=== PATIENT | male | born 1965 | race Caucasian/White ===

== ENCOUNTER 2021-09-24 01:45 | Inpatient (IN) | payer MEDICAID ==
[~2021-09-24] VITALS: Ht 167.6 cm; Wt 60.3 kg
[2021-09-24 04:42] LABS: HEMATOCRIT. 45.6 % (42.0-52.0); HEMOGLOBIN. 14.9 g/dL (14.0-18.0); MEAN CORPUSCULAR HEMOGLOBIN 29.2 pg (28.0-32.0); MEAN CORPUSCULAR VOLUME 89.3 fL (80.0-94.0); MEAN PLATELET VOLUME 7.6 fl (7.4-10.4); PLATELET 262 x1000/uL (130-400); RED BLOOD CELL COUNT 5.11 mill/uL (4.7-6.1); RED CELL DISTRIBUTION WIDTH 14.2 % (11.6-14.6)
[2021-09-24 04:48] LABS: CHLORIDE 99 mEq/L (98-107)
[2021-09-24 05:24] LABS: CLARITY URINE CLOUDY (CLEAR); COLOR URINE YELLOW (YELLOW); KETONES URINE TRACE (NEGATIVE); LEUKOCYTE ESTERASE URINE 1+ (NEGATIVE); NITRITE URINE NEGATIVE (NEGATIVE); OCCULT BLOOD URINE 3+ (NEGATIVE); PROTEIN URINE 2+ (NEGATIVE); SPECIFIC GRAVITY URINE 1.018 (1.005-1.030); UROBILINOGEN URINE 0.2 E.U./dL (0.2-1.0)
[2021-09-24] MEDS ORDERED: SODIUM CHLORIDE 0.9% 1000ML BAG (SEPSIS BOLUS) IV ONE (05:30)
[2021-09-24] MEDS ORDERED: VANCOMYCIN 1 G PREMIX 200 ML IV ONE (05:30)
[2021-09-24] MEDS ORDERED: PIPERACILLIN/TAZ 3.375G PREMIX 50 ML IV ONE (05:30)
[2021-09-24 05:47] LABS: PLATELET ESTIMATE NORMAL
[2021-09-24] MEDS ORDERED: DIPHENHYDRAMINE 50MG/ML VIAL IV PRN (07:30)
[2021-09-24] MEDS ORDERED: MORPHINE SULFATE 2 MG/ML CPJ (NOT FOR IM USE) IV PRN (07:30)
[2021-09-24] MEDS ORDERED: ONDANSETRON HCL 4MG/2ML INJ IV PRN (07:30)
[2021-09-24] MEDS ORDERED: CLONIDINE 0.1MG TABLET PO PRN (07:30)
[2021-09-24] MEDS ORDERED: MAGNESIUM/ALUMINUM HYDROXIDE/SIMETHICONE 30ML UDC PO PRN (07:30)
[2021-09-24] MEDS ORDERED: LORAZEPAM 2MG/ML CPJ IV PRN (07:30)
[2021-09-24] MEDS ORDERED: ALBUTEROL 6.7GM HFA INHALER ORI PRN (07:30)
[2021-09-24] MEDS ORDERED: DOCUSATE SODIUM 100MG CAPSULE PO PRN (07:30)
[2021-09-24] MEDS ORDERED: HYDROCODONE/ACETAMINOPHEN 5/325MG TABLET PO PRN (07:30)
[2021-09-24] MEDS ORDERED: DEXTROSE 50% WATER 50ML SYRINGE IV PRN ×3 (07:30→09:30)
[2021-09-24] MEDS ORDERED: INSULIN LISPRO 100 UNITS/ML SUBCUT SCH (08:20)
[2021-09-24] MEDS ORDERED: NALOXONE HCL 0.4MG/ML VIAL IV PRN (08:45)
[2021-09-24] MEDS: ENOXAPARIN 40MG/0.4ML SYR SUBCUT SCH (09:00)
[2021-09-24] MEDS ORDERED: BLOOD SUGAR DIAGNOSTIC STRIP TEST SCH (09:00)
[2021-09-24] MEDS: SODIUM CHLORIDE 0.45% 1,000 ML IV SCH ×2 (09:10→12:20)
[2021-09-24 10:00] LABS: T4 FREE 1.24 ng/dL (0.76-1.46)
[2021-09-24] MEDS: INSULIN GLARGINE UD 100 UNITS/ML SYR SUBCUT SCH (10:00)
[2021-09-24] MEDS ORDERED: INSULIN REGULAR (DRIP) 100 UNITS in SODIUM CHLORIDE 0.9% 99 ML IV SCH (10:00)
[2021-09-24] MEDS: BLOOD SUGAR DIAGNOSTIC STRIP TEST SCH ×14 (10:36→23:00)
[2021-09-24] MEDS ORDERED: PIPERACILLIN/TAZ 3.375G PREMIX 50 ML IV SCH (14:00)
[2021-09-24] MEDS: SODIUM CHLORIDE 0.9% INJ 3ML FLUSH IVF SCH ×2 (14:00→22:00)
[2021-09-24 17:15] LABS: CREATINE KINASE MB FRACTION 1.4 ng/mL (0.5-3.6)
[2021-09-24 22:00] VITALS: BP 115/77
[2021-09-25 07:03] LABS: HEMATOCRIT. 40.5 % (42.0-52.0); HEMOGLOBIN. 13.7 g/dL (14.0-18.0); MEAN CORPUSCULAR VOLUME 88.8 fL (80.0-94.0); MEAN PLATELET VOLUME 8.9 fl (7.4-10.4); PLATELET 128 x1000/uL (130-400); RED BLOOD CELL COUNT 4.56 mill/uL (4.7-6.1); RED CELL DISTRIBUTION WIDTH 14.3 % (11.6-14.6)
[2021-09-25 07:09] LABS: CHLORIDE 108 mEq/L (98-107)
[2021-09-25 08:00] VITALS: BP 97/63
[2021-09-25] MEDS: SODIUM CHLORIDE 0.45% 1,000 ML IV SCH ×3 (09:16→17:10)
[2021-09-25] MEDS: ENOXAPARIN 40MG/0.4ML SYR SUBCUT SCH (09:29)
[2021-09-25 12:00] VITALS: BP 109/63
[2021-09-25] MEDS: PIPERACILLIN/TAZOBACTAM 3.375 G in DEXTROSE 5% WATER 50 ML IV SCH ×4 (13:43→22:15)
[2021-09-25] MEDS: INSULIN GLARGINE UD 100 UNITS/ML SYR SUBCUT SCH (13:43)
[2021-09-25] MEDS: SODIUM CHLORIDE 0.9% INJ 3ML FLUSH IVF SCH ×2 (14:00→22:00)
[2021-09-25 16:00] VITALS: BP 112/60
[2021-09-25] MEDS ORDERED: VANCOMYCIN 1 G PREMIX 200 ML IV NR (17:00)
[2021-09-25 20:00] VITALS: BP 121/75
[2021-09-25] MEDS ORDERED: CEFTRIAXONE 1 G PREMIX 50 ML IV SCH (20:15)
[2021-09-25 20:27] LABS: CREATINE KINASE MB FRACTION 1.2 ng/mL (0.5-3.6)
[2021-09-25] MEDS ORDERED: CEFTRIAXONE 1,000 MG in DEXTROSE 5% WATER 50 ML IV NR (22:30)
[2021-09-25] MEDS ORDERED: DEXTROSE 50% WATER 50ML SYRINGE IV PRN (23:45)
[2021-09-26] VITALS: BP 130/78
[2021-09-26] MEDS: SODIUM CHLORIDE 0.45% 1,000 ML IV SCH ×2 (00:30→05:43)
[2021-09-26 04:00] VITALS: BP 127/78
[2021-09-26] MEDS: SODIUM CHLORIDE 0.9% INJ 3ML FLUSH IVF SCH ×2 (05:42→14:12)
[2021-09-26] MEDS: INSULIN LISPRO 100 UNITS/ML SUBCUT SCH ×2 (05:43→14:06)
[2021-09-26] MEDS: BLOOD SUGAR DIAGNOSTIC STRIP TEST SCH ×4 (05:43→21:00)
[2021-09-26 06:52] LABS: PLATELET ESTIMATE SLIGHTLY DECREASED
[2021-09-26 08:40] LABS: PHOSPHORUS 2.7 mg/dL (2.5-4.9)
[2021-09-26 09:08] LABS: HEMATOCRIT. 41.8 % (42.0-52.0); HEMOGLOBIN. 13.9 g/dL (14.0-18.0); MEAN CORPUSCULAR HEMOGLOBIN 29.6 pg (28.0-32.0); MEAN PLATELET VOLUME 9.3 fl (7.4-10.4); PLATELET 99 x1000/uL (130-400); RED BLOOD CELL COUNT 4.69 mill/uL (4.7-6.1); RED CELL DISTRIBUTION WIDTH 14.4 % (11.6-14.6)
[2021-09-26] MEDS ORDERED: PERMETHRIN 5% CREAM 60GM TOP NR (11:00)
[2021-09-26] MEDS: PIPERACILLIN/TAZOBACTAM 3.375 G in DEXTROSE 5% WATER 50 ML IV SCH (11:19)
[2021-09-26] MEDS: ENOXAPARIN 30MG/0.3ML SYR SUBCUT SCH (11:20)
[2021-09-26 12:00] VITALS: BP 129/72
[2021-09-26] MEDS: INSULIN GLARGINE UD 100 UNITS/ML SYR SUBCUT SCH (13:54)
[2021-09-26 15:06] LABS: ANTI-NUCLEAR ANTIBODIES DIRECT Negative (Negative)
[2021-09-26 16:00] VITALS: BP 114/72
[2021-09-26] MEDS ORDERED: CEFEPIME 1,000 MG in DEXTROSE 5% WATER 50 ML IV SCH (16:00)
[2021-09-26] MEDS: METRONIDAZOLE 500MG TABLET PO SCH (18:18)
[2021-09-26 20:00] VITALS: BP 128/74
[2021-09-27] VITALS: BP 133/77
[2021-09-27 00:22] LABS: PLATELET ESTIMATE DECREASED
[2021-09-27] MEDS: SODIUM CHLORIDE 0.9% INJ 3ML FLUSH IVF SCH ×4 (01:26→22:08)
[2021-09-27] MEDS: METRONIDAZOLE 500MG TABLET PO SCH ×4 (01:26→22:07)
[2021-09-27] MEDS: INSULIN LISPRO 100 UNITS/ML SUBCUT SCH ×5 (01:40→22:08)
[2021-09-27] MEDS: SODIUM CHLORIDE 0.45% 1,000 ML IV SCH ×2 (02:12→13:03)
[2021-09-27 04:00] VITALS: BP 132/82
[2021-09-27 06:49] LABS: PHOSPHORUS 1.3 mg/dL (2.5-4.9)
[2021-09-27 06:58] LABS: HEMOGLOBIN. 12.3 g/dL (14.0-18.0); MEAN CORPUSCULAR HEMOGLOBIN 29.6 pg (28.0-32.0); MEAN CORPUSCULAR VOLUME 86.9 fL (80.0-94.0); MEAN PLATELET VOLUME 8.8 fl (7.4-10.4); PLATELET 112 x1000/uL (130-400); RED BLOOD CELL COUNT 4.14 mill/uL (4.7-6.1); RED CELL DISTRIBUTION WIDTH 14.2 % (11.6-14.6)
[2021-09-27] MEDS: BLOOD SUGAR DIAGNOSTIC STRIP TEST SCH ×4 (07:40→21:00)
[2021-09-27 08:11] VITALS: BP 128/77
[2021-09-27] MEDS: ENOXAPARIN 30MG/0.3ML SYR SUBCUT SCH (09:52)
[2021-09-27] MEDS: INSULIN GLARGINE UD 100 UNITS/ML SYR SUBCUT SCH (09:54)
[2021-09-27] MEDS ORDERED: POTASSIUM PHOS,M-BASIC-D-BASIC 20 MMOL in DEXT 5% WATER 243.3333 ML IV SCH (12:00)
[2021-09-27 12:21] VITALS: BP 129/78
[2021-09-27] MEDS: CEFEPIME 1,000 MG in DEXTROSE 5% WATER 50 ML IV SCH (13:05)
[2021-09-27] MEDS: ACETAMINOPHEN 325MG TABLET PO PRN (13:11)
[2021-09-27 16:00] VITALS: BP 121/71
[2021-09-27 20:00] VITALS: BP 132/79
[2021-09-28] VITALS: BP 132/83
[2021-09-28] MEDS: CEFEPIME 1,000 MG in DEXTROSE 5% WATER 50 ML IV SCH ×2 (01:49→13:22)
[2021-09-28] MEDS: SODIUM CHLORIDE 0.45% 1,000 ML IV SCH ×3 (01:49→18:01)
[2021-09-28 04:00] VITALS: BP 151/94
[2021-09-28] MEDS: METRONIDAZOLE 500MG TABLET PO SCH ×3 (06:00→21:47)
[2021-09-28] MEDS: SODIUM CHLORIDE 0.9% INJ 3ML FLUSH IVF SCH ×3 (06:01→21:47)
[2021-09-28 06:37] LABS: PLATELET ESTIMATE DECREASED
[2021-09-28 08:00] VITALS: BP 133/78
[2021-09-28] MEDS: ENOXAPARIN 30MG/0.3ML SYR SUBCUT SCH (08:15)
[2021-09-28] MEDS: BLOOD SUGAR DIAGNOSTIC STRIP TEST SCH ×4 (08:15→21:00)
[2021-09-28] MEDS: INSULIN LISPRO 100 UNITS/ML SUBCUT SCH ×4 (08:18→21:47)
[2021-09-28 08:36] LABS: BASOPHILS % 0.7 % (0.0-2.0); EOSINOPHILS % 0.8 % (0.0-5.0); HEMATOCRIT. 36.5 % (42.0-52.0); HEMOGLOBIN. 12.6 g/dL (14.0-18.0); LYMPHOCYTES % 8.9 % (20.0-50.0); MEAN CORPUSCULAR HEMOGLOBIN 30.3 pg (28.0-32.0); MEAN CORPUSCULAR VOLUME 87.9 fL (80.0-94.0); MEAN PLATELET VOLUME 9.2 fl (7.4-10.4); MONOCYTES % 13.6 % (2.0-8.0); PLATELET 131 x1000/uL (130-400); RED BLOOD CELL COUNT 4.15 mill/uL (4.7-6.1); RED CELL DISTRIBUTION WIDTH 14.2 % (11.6-14.6)
[2021-09-28] MEDS ORDERED: POTASSIUM PHOS,M-BASIC-D-BASIC 20 MMOL in DEXT 5% WATER 243.3333 ML IV SCH (11:00)
[2021-09-28 11:50] VITALS: BP 130/75
[2021-09-28] MEDS: INSULIN GLARGINE UD 100 UNITS/ML SYR SUBCUT SCH (13:23)
[2021-09-28 16:10] VITALS: BP 130/75
[2021-09-28 20:00] VITALS: BP 130/79
[2021-09-29] VITALS (7 sets, daily range): BP systolic 127–155; BP diastolic 73–104
[2021-09-29] MEDS: ACETAMINOPHEN 325MG TABLET PO PRN ×2 (01:12→11:56)
[2021-09-29] MEDS: CEFEPIME 1,000 MG in DEXTROSE 5% WATER 50 ML IV SCH ×2 (01:14→13:25)
[2021-09-29] MEDS: SODIUM CHLORIDE 0.45% 1,000 ML IV SCH ×2 (06:29→13:25)
[2021-09-29] MEDS: METRONIDAZOLE 500MG TABLET PO SCH ×3 (06:34→21:02)
[2021-09-29] MEDS: SODIUM CHLORIDE 0.9% INJ 3ML FLUSH IVF SCH ×3 (06:35→22:15)
[2021-09-29] MEDS: BLOOD SUGAR DIAGNOSTIC STRIP TEST SCH ×4 (06:45→21:03)
[2021-09-29] MEDS: ENOXAPARIN 30MG/0.3ML SYR SUBCUT SCH (08:21)
[2021-09-29] MEDS: INSULIN LISPRO 100 UNITS/ML SUBCUT SCH ×4 (08:22→21:03)
[2021-09-29] MEDS: INSULIN GLARGINE UD 100 UNITS/ML SYR SUBCUT SCH (10:27)
[2021-09-29 11:20] LABS: HEMATOCRIT. 34.8 % (42.0-52.0); MEAN CORPUSCULAR VOLUME 87.2 fL (80.0-94.0); MEAN PLATELET VOLUME 8.5 fl (7.4-10.4); PLATELET 213 x1000/uL (130-400); RED BLOOD CELL COUNT 3.99 mill/uL (4.7-6.1); RED CELL DISTRIBUTION WIDTH 14.3 % (11.6-14.6)
[2021-09-29 12:55] LABS: PHOSPHORUS 2.3 mg/dL (2.5-4.9)
[2021-09-29] MEDS: SODIUM CHLORIDE 0.9% 1,000 ML IV SCH (13:34)
[2021-09-29] MEDS ORDERED: MAGNESIUM 4 G PREMIX 100 ML IV NR (15:00)
[2021-09-29] MEDS ORDERED: POTASSIUM PHOS,M-BASIC-D-BASIC 20 MMOL in DEXT 5% WATER 243.3333 ML IV NR (15:00)
[2021-09-30 00:21] LABS: PLATELET ESTIMATE NORMAL
[2021-09-30 00:39] VITALS: BP 146/88
[2021-09-30 04:00] VITALS: BP 111/73
[2021-09-30] MEDS: BLOOD SUGAR DIAGNOSTIC STRIP TEST SCH ×4 (07:40→21:46)
[2021-09-30 08:00] VITALS: BP 113/59
[2021-09-30] MEDS: ENOXAPARIN 30MG/0.3ML SYR SUBCUT SCH (09:27)
[2021-09-30] MEDS: INSULIN LISPRO 100 UNITS/ML SUBCUT SCH ×4 (09:34→23:56)
[2021-09-30] MEDS: INSULIN GLARGINE UD 100 UNITS/ML SYR SUBCUT SCH (10:28)
[2021-09-30 11:07] LABS: HEMATOCRIT. 35.8 % (42.0-52.0); MEAN CORPUSCULAR HEMOGLOBIN 29.4 pg (28.0-32.0); MEAN CORPUSCULAR VOLUME 87.8 fL (80.0-94.0); MEAN PLATELET VOLUME 8.7 fl (7.4-10.4); PLATELET 287 x1000/uL (130-400); RED BLOOD CELL COUNT 4.08 mill/uL (4.7-6.1); RED CELL DISTRIBUTION WIDTH 14.4 % (11.6-14.6)
[2021-09-30 11:27] LABS: PHOSPHORUS 3.8 mg/dL (2.5-4.9)
[2021-09-30 12:00] VITALS: BP 129/82
[2021-09-30 12:30] LABS: PLATELET ESTIMATE NORMAL
[2021-09-30] MEDS: METRONIDAZOLE 500MG TABLET PO SCH ×3 (14:00→23:51)
[2021-09-30] MEDS: CEFEPIME 1,000 MG in DEXTROSE 5% WATER 50 ML IV SCH (14:02)
[2021-09-30] MEDS: SODIUM CHLORIDE 0.9% INJ 3ML FLUSH IVF SCH ×2 (14:02→22:00)
[2021-09-30] MEDS: SODIUM CHLORIDE 0.9% 1,000 ML IV SCH (15:59)
[2021-09-30 16:00] VITALS: BP 122/70
[2021-09-30 20:00] VITALS: BP 128/74
[2021-10-01] VITALS: BP 133/68
[2021-10-01] MEDS: CEFEPIME 1,000 MG in DEXTROSE 5% WATER 50 ML IV SCH ×2 (02:00→13:26)
[2021-10-01 04:00] VITALS: BP 130/60
[2021-10-01] MEDS: ACETAMINOPHEN 325MG TABLET PO PRN ×2 (04:31→21:38)
[2021-10-01 06:46] LABS: BASOPHILS % 0.4 % (0.0-2.0); HEMATOCRIT. 30.2 % (42.0-52.0); HEMOGLOBIN. 10.5 g/dL (14.0-18.0); LYMPHOCYTES % 8.6 % (20.0-50.0); MEAN CORPUSCULAR HEMOGLOBIN 30.3 pg (28.0-32.0); MEAN CORPUSCULAR VOLUME 87.4 fL (80.0-94.0); MEAN PLATELET VOLUME 8.9 fl (7.4-10.4); MONOCYTES % 11.7 % (2.0-8.0); NEUTROPHILS % 77.3 % (40.0-76.0); PLATELET 354 x1000/uL (130-400); RED BLOOD CELL COUNT 3.45 mill/uL (4.7-6.1); RED CELL DISTRIBUTION WIDTH 14.2 % (11.6-14.6)
[2021-10-01] MEDS: BLOOD SUGAR DIAGNOSTIC STRIP TEST SCH ×4 (07:40→21:39)
[2021-10-01] MEDS: METRONIDAZOLE 500MG TABLET PO SCH ×3 (07:41→21:38)
[2021-10-01] MEDS: SODIUM CHLORIDE 0.9% INJ 3ML FLUSH IVF SCH ×3 (07:41→21:39)
[2021-10-01] MEDS: SODIUM CHLORIDE 0.9% 1,000 ML IV SCH ×2 (07:42→13:26)
[2021-10-01 08:00] VITALS: BP 107/51
[2021-10-01] MEDS: INSULIN LISPRO 100 UNITS/ML SUBCUT SCH ×4 (08:24→21:00)
[2021-10-01] MEDS: ENOXAPARIN 30MG/0.3ML SYR SUBCUT SCH (08:33)
[2021-10-01] MEDS: INSULIN GLARGINE UD 100 UNITS/ML SYR SUBCUT SCH (11:38)
[2021-10-01 12:00] VITALS: BP 134/65
[2021-10-01 16:00] VITALS: BP 154/55
[2021-10-01] MEDS ORDERED: CEFTRIAXONE 1 G PREMIX 50 ML IV SCH (19:00)
[2021-10-01 20:00] VITALS: BP 141/68
[2021-10-01] MEDS: CEFTRIAXONE 1,000 MG in DEXTROSE 5% WATER 50 ML IV SCH (21:38)
[2021-10-02] VITALS: BP 119/60
[2021-10-02 04:00] VITALS: BP 129/66
[2021-10-02] MEDS: SODIUM CHLORIDE 0.9% INJ 3ML FLUSH IVF SCH ×3 (05:31→21:32)
[2021-10-02 06:42] LABS: HEMATOCRIT. 34.7 % (42.0-52.0); HEMOGLOBIN. 11.7 g/dL (14.0-18.0); MEAN CORPUSCULAR VOLUME 88.7 fL (80.0-94.0); MEAN PLATELET VOLUME 8.6 fl (7.4-10.4); PLATELET 371 x1000/uL (130-400); RED BLOOD CELL COUNT 3.92 mill/uL (4.7-6.1); RED CELL DISTRIBUTION WIDTH 14.6 % (11.6-14.6)
[2021-10-02] MEDS: BLOOD SUGAR DIAGNOSTIC STRIP TEST SCH ×4 (07:40→21:18)
[2021-10-02] MEDS: INSULIN LISPRO 100 UNITS/ML SUBCUT SCH ×4 (07:58→21:34)
[2021-10-02] MEDS: GUAIFENESIN 200MG/10ML SUGAR FREE UDC PO PRN (07:58)
[2021-10-02] MEDS: ENOXAPARIN 30MG/0.3ML SYR SUBCUT SCH (07:59)
[2021-10-02 08:00] VITALS: BP 131/64
[2021-10-02] MEDS: METRONIDAZOLE 500MG TABLET PO SCH ×2 (08:02→21:32)
[2021-10-02] MEDS: INSULIN GLARGINE UD 100 UNITS/ML SYR SUBCUT SCH (11:59)
[2021-10-02 12:00] VITALS: BP 132/73
[2021-10-02] MEDS: ACETAMINOPHEN 325MG TABLET PO PRN (12:13)
[2021-10-02 16:00] VITALS: BP 113/65
[2021-10-02 18:04] LABS: PLATELET ESTIMATE NORMAL
[2021-10-02] MEDS: DEXAMETHASONE 10 MG/ML VIAL IV SCH (18:43)
[2021-10-02 20:00] VITALS: BP 132/71
[2021-10-02] MEDS: CEFTRIAXONE 1,000 MG in DEXTROSE 5% WATER 50 ML IV SCH (21:35)
[2021-10-03 00:18] VITALS: BP 129/80
[2021-10-03 04:00] VITALS: BP 106/64
[2021-10-03] MEDS: SODIUM CHLORIDE 0.9% INJ 3ML FLUSH IVF SCH ×3 (06:22→21:13)
[2021-10-03 06:30] LABS: BASOPHILS % 0.2 % (0.0-2.0); HEMATOCRIT. 31.5 % (42.0-52.0); HEMOGLOBIN. 11.2 g/dL (14.0-18.0); LYMPHOCYTES % 7.7 % (20.0-50.0); MEAN CORPUSCULAR HEMOGLOBIN 31.1 pg (28.0-32.0); MEAN CORPUSCULAR VOLUME 87.7 fL (80.0-94.0); MEAN PLATELET VOLUME 8.5 fl (7.4-10.4); MONOCYTES % 2.5 % (2.0-8.0); NEUTROPHILS % 89.6 % (40.0-76.0); PLATELET 399 x1000/uL (130-400); RED BLOOD CELL COUNT 3.59 mill/uL (4.7-6.1)
[2021-10-03] MEDS: BLOOD SUGAR DIAGNOSTIC STRIP TEST SCH ×4 (06:54→21:04)
[2021-10-03 08:00] VITALS: BP 124/68
[2021-10-03] MEDS: METRONIDAZOLE 500MG TABLET PO SCH ×2 (08:55→21:11)
[2021-10-03] MEDS: INSULIN LISPRO 100 UNITS/ML SUBCUT SCH ×4 (08:55→21:12)
[2021-10-03] MEDS: ENOXAPARIN 40MG/0.4ML SYR SUBCUT SCH (08:55)
[2021-10-03] MEDS: DEXAMETHASONE 10 MG/ML VIAL IV SCH (08:56)
[2021-10-03] MEDS ORDERED: SODIUM POLYSTYRENE SULFONATE 15 G/60 ML BOT PO NR (10:15)
[2021-10-03] MEDS: INSULIN GLARGINE UD 100 UNITS/ML SYR SUBCUT SCH (10:15)
[2021-10-03] MEDS: TAMSULOSIN HCL 0.4MG SR CAPSULE PO SCH (10:17)
[2021-10-03 12:00] VITALS: BP 120/63
[2021-10-03 16:00] VITALS: BP 110/68
[2021-10-03 20:00] VITALS: BP 106/67
[2021-10-03] MEDS: CEFTRIAXONE 1,000 MG in DEXTROSE 5% WATER 50 ML IV SCH (21:19)
[2021-10-04] VITALS: BP 126/72
[2021-10-04 04:00] VITALS: BP 127/70
[2021-10-04] MEDS: SODIUM CHLORIDE 0.9% INJ 3ML FLUSH IVF SCH ×3 (06:06→22:49)
[2021-10-04 08:00] VITALS: BP 117/71
[2021-10-04] MEDS: BLOOD SUGAR DIAGNOSTIC STRIP TEST SCH ×3 (08:17→16:47)
[2021-10-04] MEDS: INSULIN LISPRO 100 UNITS/ML SUBCUT SCH ×4 (08:18→21:00)
[2021-10-04 08:19] LABS: BASOPHILS % 0.2 % (0.0-2.0); HEMATOCRIT. 33.3 % (42.0-52.0); HEMOGLOBIN. 11.3 g/dL (14.0-18.0); LYMPHOCYTES % 11.6 % (20.0-50.0); MEAN CORPUSCULAR HEMOGLOBIN 29.6 pg (28.0-32.0); MEAN PLATELET VOLUME 8.4 fl (7.4-10.4); MONOCYTES % 7.5 % (2.0-8.0); NEUTROPHILS % 80.7 % (40.0-76.0); PLATELET 518 x1000/uL (130-400); RED BLOOD CELL COUNT 3.83 mill/uL (4.7-6.1); RED CELL DISTRIBUTION WIDTH 14.4 % (11.6-14.6)
[2021-10-04] MEDS: ENOXAPARIN 40MG/0.4ML SYR SUBCUT SCH (09:45)
[2021-10-04] MEDS: TAMSULOSIN HCL 0.4MG SR CAPSULE PO SCH (09:46)
[2021-10-04] MEDS: METRONIDAZOLE 500MG TABLET PO SCH ×2 (09:46→21:36)
[2021-10-04] MEDS: DEXAMETHASONE 10 MG/ML VIAL IV SCH (09:46)
[2021-10-04] MEDS: INSULIN GLARGINE UD 100 UNITS/ML SYR SUBCUT SCH (09:47)
[2021-10-04 12:00] VITALS: BP 114/69
[2021-10-04 16:07] VITALS: BP 129/74
[2021-10-04 20:00] VITALS: BP 118/61
[2021-10-04] MEDS: CEFTRIAXONE 1,000 MG in DEXTROSE 5% WATER 50 ML IV SCH (21:36)
[2021-10-05] VITALS (7 sets, daily range): BP systolic 119–134; BP diastolic 56–76
[2021-10-05] MEDS: SODIUM CHLORIDE 0.9% INJ 3ML FLUSH IVF SCH ×4 (06:19→23:08)
[2021-10-05] MEDS: BLOOD SUGAR DIAGNOSTIC STRIP TEST SCH ×4 (07:40→20:58)
[2021-10-05] MEDS: ENOXAPARIN 40MG/0.4ML SYR SUBCUT SCH (09:20)
[2021-10-05] MEDS: GUAIFENESIN 200MG/10ML SUGAR FREE UDC PO PRN (09:20)
[2021-10-05] MEDS: TAMSULOSIN HCL 0.4MG SR CAPSULE PO SCH (09:21)
[2021-10-05] MEDS: METRONIDAZOLE 500MG TABLET PO SCH ×2 (09:21→21:53)
[2021-10-05] MEDS: DEXAMETHASONE 10 MG/ML VIAL IV SCH (09:22)
[2021-10-05] MEDS: INSULIN LISPRO 100 UNITS/ML SUBCUT SCH ×4 (09:24→21:57)
[2021-10-05] MEDS ORDERED: INSULIN GLARGINE UD 100 UNITS/ML SYR SUBCUT SCH ×2 (10:00→22:00)
[2021-10-05] MEDS ORDERED: INSULIN LISPRO 100 UNITS/ML SUBCUT NR (13:45)
[2021-10-05] MEDS ORDERED: INSULIN GLARGINE UD 100 UNITS/ML SYR SUBCUT NR (15:00)
[2021-10-05] MEDS: CEFTRIAXONE 1,000 MG in DEXTROSE 5% WATER 50 ML IV SCH (21:00)
[2021-10-06] VITALS: BP 125/69
[2021-10-06 04:00] VITALS: BP 135/71
[2021-10-06] MEDS: BLOOD SUGAR DIAGNOSTIC STRIP TEST SCH ×3 (06:05→17:06)
[2021-10-06] MEDS: GUAIFENESIN 200MG/10ML SUGAR FREE UDC PO PRN (08:22)
[2021-10-06] MEDS: ENOXAPARIN 40MG/0.4ML SYR SUBCUT SCH (08:23)
[2021-10-06] MEDS: TAMSULOSIN HCL 0.4MG SR CAPSULE PO SCH (08:23)
[2021-10-06] MEDS: METRONIDAZOLE 500MG TABLET PO SCH (08:23)
[2021-10-06] MEDS: DEXAMETHASONE 10 MG/ML VIAL IV SCH (08:24)
[2021-10-06] MEDS: INSULIN LISPRO 100 UNITS/ML SUBCUT SCH ×3 (08:25→17:19)
[2021-10-06] MEDS ORDERED: INSULIN GLARGINE UD 100 UNITS/ML SYR SUBCUT SCH (10:00)
[2021-10-06] MEDS ORDERED: LEVOFLOXACIN 250MG TABLET PO NR (11:45)
[2021-10-06] MEDS: SODIUM CHLORIDE 0.9% INJ 3ML FLUSH IVF SCH (12:48)
[2021-10-06 14:28] VITALS: BP 121/67
[2021-10-06 16:00] VITALS: BP 130/74
[2021-10-06 16:58] VITALS: BP 130/74
[2021-10-07] MEDS ORDERED: DEXAMETHASONE 10 MG/ML VIAL PO SCH (09:00)
[2021-10-08] MEDS ORDERED: LEVOFLOXACIN 500MG TABLET PO SCH (09:00)
== END 2021-10-06 19:56 | DRG 720 ==
LOC: ER 01:45 → EDBEDREQ 06:27 → EDBEDREQTM 06:27 → EDBEDREQSVC 06:27 → ENRESERV 20:02 → 7WST 22:36
PROVIDERS: ADMIT Internal Medicine; ATTEND Internal Medicine
DX: A41.51 Sepsis due to Escherichia coli [E. coli] (principal); J96.00 Acute respiratory failure, unspecified whether with hypoxia or hypercapnia; J12.82 Pneumonia due to coronavirus disease 2019; N17.0 Acute kidney failure with tubular necrosis; G93.40 Encephalopathy, unspecified; E11.10 Type 2 diabetes mellitus with ketoacidosis without coma; E46 Unspecified protein-calorie malnutrition; A41.89 Other specified sepsis; U07.1 COVID-19; E86.9 Volume depletion, unspecified; D69.6 Thrombocytopenia, unspecified; E11.22 Type 2 diabetes mellitus with diabetic chronic kidney disease; E78.5 Hyperlipidemia, unspecified; M19.90 Unspecified osteoarthritis, unspecified site; B86 Scabies; I12.9 Hypertensive chronic kidney disease with stage 1 through stage 4 chronic kidney disease, or unspecified chronic kidney disease; J44.0 Chronic obstructive pulmonary disease with (acute) lower respiratory infection; N18.9 Chronic kidney disease, unspecified; Z86.73 Personal history of transient ischemic attack (TIA), and cerebral infarction without residual deficits; Z83.3 Family history of diabetes mellitus; Z88.8 Allergy status to other drugs, medicaments and biological substances; Z79.2 Long term (current) use of antibiotics; Z79.899 Other long term (current) drug therapy; Z68.21 Body mass index [BMI] 21.0-21.9, adult; N39.0 Urinary tract infection, site not specified; R19.7 Diarrhea, unspecified
CPT/HCPCS: 36415; 71045; 74176; 76770; 80048; 80053; 80061; 80202; 81003; 82550; 82553; 82962; 83036; 83605; 83735; 83880; 84100; 84145; 84439; 84443; 84484; 85025; 85379; 86038; 86140; 86160; 87077; 87186; 87426; 87493; 93005; 99291; A4565; A6261; C1893; C9803; J0692; J0696; J1100; J1650; J1815; J2543; J3370; J3475; J3490; J7030; J7040; J7050; J7060; U0003; U0005; A4315